=== PATIENT | female | born 1935 | race Hispanic/Latino ===

== ENCOUNTER → 2017-06-24 | Outpatient (CLI) | payer MEDICARE ==
[~2017-06-24] MED LIST: LIDOCAINE/PRILOCAINE CREAM 5GM TUBE TP ONE
[2017-06-24 13:45] VITALS: BP 139/71
== END | disposition home or self-care (01) ==
LOC: WHH 13:00
PROVIDERS: ATTEND Family Medicine
DX: S81.802D Unspecified open wound, left lower leg, subsequent encounter (principal); E11.9 Type 2 diabetes mellitus without complications; I10 Essential (primary) hypertension; J44.9 Chronic obstructive pulmonary disease, unspecified; M19.90 Unspecified osteoarthritis, unspecified site; E78.5 Hyperlipidemia, unspecified; M81.0 Age-related osteoporosis without current pathological fracture; G40.909 Epilepsy, unspecified, not intractable, without status epilepticus; I25.10 Atherosclerotic heart disease of native coronary artery without angina pectoris; X58.XXXD Exposure to other specified factors, subsequent encounter
CPT/HCPCS: 11042; A4450; A6213; A6248; G0463; J3490

== ENCOUNTER → 2017-06-30 | Outpatient (CLI) | payer MEDICARE | END | disposition home or self-care (01) | LOC: WHH 08:00 | PROVIDERS: ATTEND Family Medicine | DX: S81.802D Unspecified open wound, left lower leg, subsequent encounter (principal); E11.9 Type 2 diabetes mellitus without complications; I10 Essential (primary) hypertension; J44.9 Chronic obstructive pulmonary disease, unspecified; M19.90 Unspecified osteoarthritis, unspecified site; E78.5 Hyperlipidemia, unspecified; M81.0 Age-related osteoporosis without current pathological fracture; G40.909 Epilepsy, unspecified, not intractable, without status epilepticus; I25.10 Atherosclerotic heart disease of native coronary artery without angina pectoris; X58.XXXD Exposure to other specified factors, subsequent encounter | CPT/HCPCS: 93922 ==

== ENCOUNTER → 2017-07-01 | Outpatient (CLI) | payer MEDICARE ==
[2017-07-01 13:33] VITALS: BP 183/81
== END | disposition home or self-care (01) ==
LOC: WHH 13:00
PROVIDERS: ATTEND Family Medicine
DX: S81.802D Unspecified open wound, left lower leg, subsequent encounter (principal); E11.9 Type 2 diabetes mellitus without complications; I10 Essential (primary) hypertension; J44.9 Chronic obstructive pulmonary disease, unspecified; M19.90 Unspecified osteoarthritis, unspecified site; E78.5 Hyperlipidemia, unspecified; M81.0 Age-related osteoporosis without current pathological fracture; G40.909 Epilepsy, unspecified, not intractable, without status epilepticus; I25.10 Atherosclerotic heart disease of native coronary artery without angina pectoris; X58.XXXD Exposure to other specified factors, subsequent encounter
CPT/HCPCS: A6213; A6452; G0463; J3490

== ENCOUNTER → 2017-07-08 | Outpatient (CLI) | payer MEDICARE ==
[2017-07-08 13:43] VITALS: BP 168/62
== END | disposition home or self-care (01) ==
LOC: WHH 13:00
PROVIDERS: ATTEND Family Medicine
DX: S81.802D Unspecified open wound, left lower leg, subsequent encounter (principal); E11.9 Type 2 diabetes mellitus without complications; I10 Essential (primary) hypertension; J44.9 Chronic obstructive pulmonary disease, unspecified; M19.90 Unspecified osteoarthritis, unspecified site; E78.5 Hyperlipidemia, unspecified; M81.0 Age-related osteoporosis without current pathological fracture; G40.909 Epilepsy, unspecified, not intractable, without status epilepticus; I25.10 Atherosclerotic heart disease of native coronary artery without angina pectoris; X58.XXXD Exposure to other specified factors, subsequent encounter
CPT/HCPCS: G0463; J3490

== ENCOUNTER → 2017-07-15 | Outpatient (CLI) | payer MEDICARE ==
[2017-07-15 09:33] VITALS: BP 173/64
== END | disposition home or self-care (01) ==
LOC: WHH 08:00
PROVIDERS: ATTEND Family Medicine
DX: S81.802D Unspecified open wound, left lower leg, subsequent encounter (principal); E11.9 Type 2 diabetes mellitus without complications; I10 Essential (primary) hypertension; J44.9 Chronic obstructive pulmonary disease, unspecified; M19.90 Unspecified osteoarthritis, unspecified site; E78.5 Hyperlipidemia, unspecified; M81.0 Age-related osteoporosis without current pathological fracture; G40.909 Epilepsy, unspecified, not intractable, without status epilepticus; I25.10 Atherosclerotic heart disease of native coronary artery without angina pectoris; X58.XXXD Exposure to other specified factors, subsequent encounter
CPT/HCPCS: A6213; G0463; J3490

== ENCOUNTER 2017-07-21 18:53 | Emergency (ER) | payer MEDICARE ==
[2017-07-21] MEDS ORDERED: LIDOCAINE HCL 1% 20 ML VIAL ONE ×2 (19:17→19:19)
[2017-07-21] MEDS ORDERED: TETANUS/DIPHTHERIA TOXOID [ADULT] 0.5 ML VIAL IM ONE (21:22)
== END 2017-07-21 22:11 | disposition home or self-care (01) ==
LOC: EDH 18:53
DX: S81.011A Laceration without foreign body, right knee, initial encounter (principal); W18.39XA Other fall on same level, initial encounter; Z79.899 Other long term (current) drug therapy; Z87.891 Personal history of nicotine dependence; Y93.01 Activity, walking, marching and hiking; Y92.89 Other specified places as the place of occurrence of the external cause; Y99.8 Other external cause status
CPT/HCPCS: 12035; 73562; 90471; 90714

== ENCOUNTER → 2017-08-02 | Outpatient (CLI) | payer MEDICARE ==
[2017-08-02 17:37] VITALS: BP 140/72
== END | disposition home or self-care (01) ==
LOC: WHH 15:00
PROVIDERS: ATTEND Family Medicine
DX: S81.802D Unspecified open wound, left lower leg, subsequent encounter (principal); S81.001D Unspecified open wound, right knee, subsequent encounter; E11.9 Type 2 diabetes mellitus without complications; I10 Essential (primary) hypertension; J44.9 Chronic obstructive pulmonary disease, unspecified; M19.90 Unspecified osteoarthritis, unspecified site; R53.81 Other malaise; E78.5 Hyperlipidemia, unspecified; M81.0 Age-related osteoporosis without current pathological fracture; G40.909 Epilepsy, unspecified, not intractable, without status epilepticus; I25.10 Atherosclerotic heart disease of native coronary artery without angina pectoris; W19.XXXD Unspecified fall, subsequent encounter
CPT/HCPCS: A6209; G0463; J3490

== ENCOUNTER → 2017-08-05 | Outpatient (CLI) | payer MEDICARE ==
[~2017-08-05] MED LIST changes: +HONEY 1 APPL/ML TUBE TP ONE; -LIDOCAINE/PRILOCAINE CREAM 5GM TUBE TP ONE
[2017-08-05 16:12] VITALS: BP 161/67
== END | disposition home or self-care (01) ==
LOC: WHH 13:45
PROVIDERS: ATTEND Family Medicine
DX: S81.802D Unspecified open wound, left lower leg, subsequent encounter (principal); S81.001D Unspecified open wound, right knee, subsequent encounter; E11.9 Type 2 diabetes mellitus without complications; I10 Essential (primary) hypertension; J44.9 Chronic obstructive pulmonary disease, unspecified; M19.90 Unspecified osteoarthritis, unspecified site; I89.0 Lymphedema, not elsewhere classified; E78.5 Hyperlipidemia, unspecified; M81.0 Age-related osteoporosis without current pathological fracture; G40.909 Epilepsy, unspecified, not intractable, without status epilepticus; I25.10 Atherosclerotic heart disease of native coronary artery without angina pectoris; W19.XXXD Unspecified fall, subsequent encounter
CPT/HCPCS: 11042; 11045; 87070; 87077; 87186; A4450

== ENCOUNTER → 2017-08-12 | Outpatient (CLI) | payer MEDICARE ==
[~2017-08-12] MED LIST changes: -HONEY 1 APPL/ML TUBE TP ONE; +LIDOCAINE/PRILOCAINE CREAM 5GM TUBE TP ONE
[2017-08-12 13:28] VITALS: BP 139/63
== END | disposition home or self-care (01) ==
LOC: WHH 12:55
PROVIDERS: ATTEND Family Medicine
DX: S81.802D Unspecified open wound, left lower leg, subsequent encounter (principal); M81.0 Age-related osteoporosis without current pathological fracture; I25.10 Atherosclerotic heart disease of native coronary artery without angina pectoris; J44.9 Chronic obstructive pulmonary disease, unspecified; I10 Essential (primary) hypertension; E78.5 Hyperlipidemia, unspecified; I89.0 Lymphedema, not elsewhere classified; G40.909 Epilepsy, unspecified, not intractable, without status epilepticus; E11.9 Type 2 diabetes mellitus without complications; M19.90 Unspecified osteoarthritis, unspecified site; X58.XXXD Exposure to other specified factors, subsequent encounter
CPT/HCPCS: 11042; 11045; J3490

== ENCOUNTER → 2017-08-19 | Outpatient (CLI) | payer MEDICARE ==
[2017-08-19 13:53] VITALS: BP 165/70
== END | disposition home or self-care (01) ==
LOC: WHH 13:00
PROVIDERS: ATTEND Family Medicine
DX: S81.801D Unspecified open wound, right lower leg, subsequent encounter (principal); S81.802D Unspecified open wound, left lower leg, subsequent encounter; I10 Essential (primary) hypertension; E11.9 Type 2 diabetes mellitus without complications; J44.9 Chronic obstructive pulmonary disease, unspecified; M19.90 Unspecified osteoarthritis, unspecified site; R53.81 Other malaise; E78.5 Hyperlipidemia, unspecified; M81.0 Age-related osteoporosis without current pathological fracture; I89.0 Lymphedema, not elsewhere classified; Z87.891 Personal history of nicotine dependence; W19.XXXD Unspecified fall, subsequent encounter
CPT/HCPCS: 11042; 11045; J3490

== ENCOUNTER → 2017-08-26 | Outpatient (CLI) | payer MEDICARE ==
[2017-08-26 13:56] VITALS: BP 134/56
== END | disposition home or self-care (01) ==
LOC: WHH 13:00
PROVIDERS: ATTEND Family Medicine
DX: T81.89XD Other complications of procedures, not elsewhere classified, subsequent encounter (principal); E11.9 Type 2 diabetes mellitus without complications; I10 Essential (primary) hypertension; J44.9 Chronic obstructive pulmonary disease, unspecified; M19.90 Unspecified osteoarthritis, unspecified site; R53.81 Other malaise; M81.0 Age-related osteoporosis without current pathological fracture; E78.5 Hyperlipidemia, unspecified; I89.0 Lymphedema, not elsewhere classified; I25.10 Atherosclerotic heart disease of native coronary artery without angina pectoris; Z87.891 Personal history of nicotine dependence; Y83.8 Other surgical procedures as the cause of abnormal reaction of the patient, or of later complication, without mention of misadventure at the time of the procedure
CPT/HCPCS: 11042

== ENCOUNTER → 2017-09-02 | Outpatient (CLI) | payer MEDICARE ==
[2017-09-02 14:08] VITALS: BP 160/56
== END | disposition home or self-care (01) ==
LOC: WHH 13:00
PROVIDERS: ATTEND Family Medicine
DX: S81.001D Unspecified open wound, right knee, subsequent encounter (principal); E11.9 Type 2 diabetes mellitus without complications; I10 Essential (primary) hypertension; J44.9 Chronic obstructive pulmonary disease, unspecified; M19.90 Unspecified osteoarthritis, unspecified site; R53.81 Other malaise; M81.0 Age-related osteoporosis without current pathological fracture; E78.5 Hyperlipidemia, unspecified; I89.0 Lymphedema, not elsewhere classified; I25.10 Atherosclerotic heart disease of native coronary artery without angina pectoris; Z87.891 Personal history of nicotine dependence; X58.XXXD Exposure to other specified factors, subsequent encounter
CPT/HCPCS: 11042; J3490

== ENCOUNTER → 2017-09-09 | Outpatient (CLI) | payer MEDICARE ==
[2017-09-09 13:33] VITALS: BP 149/69
== END | disposition home or self-care (01) ==
LOC: WHH 13:00
PROVIDERS: ATTEND Family Medicine
DX: T81.89XD Other complications of procedures, not elsewhere classified, subsequent encounter (principal); J44.9 Chronic obstructive pulmonary disease, unspecified; M19.90 Unspecified osteoarthritis, unspecified site; E11.9 Type 2 diabetes mellitus without complications; R53.81 Other malaise; M81.0 Age-related osteoporosis without current pathological fracture; E78.5 Hyperlipidemia, unspecified; I25.10 Atherosclerotic heart disease of native coronary artery without angina pectoris; I10 Essential (primary) hypertension; I89.0 Lymphedema, not elsewhere classified; Z87.891 Personal history of nicotine dependence; Y83.8 Other surgical procedures as the cause of abnormal reaction of the patient, or of later complication, without mention of misadventure at the time of the procedure
CPT/HCPCS: 11042; J3490

== ENCOUNTER → 2017-09-16 | Outpatient (CLI) | payer MEDICARE ==
[2017-09-16 14:03] VITALS: BP 164/74
== END | disposition home or self-care (01) ==
LOC: WHH 13:00
PROVIDERS: ATTEND Family Medicine
DX: T81.89XD Other complications of procedures, not elsewhere classified, subsequent encounter (principal); M19.90 Unspecified osteoarthritis, unspecified site; R53.81 Other malaise; M81.0 Age-related osteoporosis without current pathological fracture; I87.2 Venous insufficiency (chronic) (peripheral); I89.0 Lymphedema, not elsewhere classified; E78.5 Hyperlipidemia, unspecified; I10 Essential (primary) hypertension; J44.9 Chronic obstructive pulmonary disease, unspecified; I25.10 Atherosclerotic heart disease of native coronary artery without angina pectoris; E11.9 Type 2 diabetes mellitus without complications; Z87.891 Personal history of nicotine dependence; Y83.8 Other surgical procedures as the cause of abnormal reaction of the patient, or of later complication, without mention of misadventure at the time of the procedure
CPT/HCPCS: 11042; A4450; J3490

== ENCOUNTER 2017-09-23 13:00 | Outpatient (CLI) | payer MEDICARE ==
[2017-09-23 14:46] VITALS: BP 181/64
== END 2017-09-23 17:00 | disposition home or self-care (01) ==
LOC: WHH 13:00
PROVIDERS: ATTEND Family Medicine
DX: T81.89XD Other complications of procedures, not elsewhere classified, subsequent encounter (principal); M19.90 Unspecified osteoarthritis, unspecified site; R53.81 Other malaise; M81.0 Age-related osteoporosis without current pathological fracture; E78.5 Hyperlipidemia, unspecified; I87.2 Venous insufficiency (chronic) (peripheral); J44.9 Chronic obstructive pulmonary disease, unspecified; I10 Essential (primary) hypertension; I89.0 Lymphedema, not elsewhere classified; G40.909 Epilepsy, unspecified, not intractable, without status epilepticus; Z87.891 Personal history of nicotine dependence; Y83.8 Other surgical procedures as the cause of abnormal reaction of the patient, or of later complication, without mention of misadventure at the time of the procedure
CPT/HCPCS: G0463; J3490

== ENCOUNTER → 2017-10-21 | Outpatient (CLI) | payer MEDICARE ==
[2017-10-21 16:27] VITALS: BP 182/75
== END | disposition home or self-care (01) ==
LOC: WHH 13:00
PROVIDERS: ATTEND Family Medicine
DX: I83.018 Varicose veins of right lower extremity with ulcer other part of lower leg (principal); L97.811 Non-pressure chronic ulcer of other part of right lower leg limited to breakdown of skin; M19.90 Unspecified osteoarthritis, unspecified site; R53.81 Other malaise; M81.0 Age-related osteoporosis without current pathological fracture; E78.5 Hyperlipidemia, unspecified; I87.2 Venous insufficiency (chronic) (peripheral); J44.9 Chronic obstructive pulmonary disease, unspecified; I10 Essential (primary) hypertension; I89.0 Lymphedema, not elsewhere classified; I73.9 Peripheral vascular disease, unspecified; G40.909 Epilepsy, unspecified, not intractable, without status epilepticus; Z87.891 Personal history of nicotine dependence; Z90.710 Acquired absence of both cervix and uterus
CPT/HCPCS: 11042; A4450; A6196; A6248; J3490

== ENCOUNTER → 2019-03-20 | Outpatient (CLI) | payer MEDICARE | END | disposition home or self-care (01) | LOC: RAH 07:50 | PROVIDERS: ATTEND Internal Medicine | DX: R10.11 Right upper quadrant pain (principal) | CPT/HCPCS: 76700 ==

== ENCOUNTER → 2019-06-05 | Outpatient (CLI) | payer MEDICARE | END | disposition home or self-care (01) | LOC: OIH 10:38 | PROVIDERS: ATTEND Internal Medicine | DX: M47.814 Spondylosis without myelopathy or radiculopathy, thoracic region (principal); J44.1 Chronic obstructive pulmonary disease with (acute) exacerbation; I70.0 Atherosclerosis of aorta | CPT/HCPCS: 71046 ==

== ENCOUNTER → 2019-12-04 | Outpatient (CLI) | payer MEDICARE | END | disposition home or self-care (01) | LOC: OIH 11:56 | PROVIDERS: ATTEND Internal Medicine | DX: S52.602A Unspecified fracture of lower end of left ulna, initial encounter for closed fracture (principal); S62.102A Fracture of unspecified carpal bone, left wrist, initial encounter for closed fracture; M19.032 Primary osteoarthritis, left wrist; M47.815 Spondylosis without myelopathy or radiculopathy, thoracolumbar region; X58.XXXA Exposure to other specified factors, initial encounter; Y93.89 Activity, other specified; Y92.89 Other specified places as the place of occurrence of the external cause; Y99.8 Other external cause status | CPT/HCPCS: 73100; 74018 ==

== ENCOUNTER 2019-12-07 11:57 | Inpatient (IN) | payer MEDICARE ==
[~2019-12-07] VITALS: Ht 154.9 cm; Wt 74.8 kg
--- NOTE | 2019-12-07 11:48 | NUR ---
TEXT TO DR. NANCY BRUNER TESTING ON NEW ADMIT ??WITH RULE OUT DX OF P/E?? ASKED DR. Washburn TO SENT ZOHREH SCREENIGN IF DONE TO FAX ON 3B. PENDING RESPONSE Addendum: 12/07/19 at 1854 by HEATHER MAI RN CM Amended: Links added.
[2019-12-07] MEDS ORDERED: ONDANSETRON HCL 4 MG/2 ML VIAL IVP PRN (12:45)
[2019-12-07] MEDS ORDERED: PHARMACY COMMUNICATION MISC SCH (12:45)
[2019-12-07] MEDS ORDERED: 1/2 NORMAL SALINE 1,000 ML IV SCH (12:45)
[2019-12-07 13:11] LABS: BASOPHILS % (AUTO) 0.1 % (0.0-5.0); EOSINOPHILS % (AUTO) 0.3 % (0.0-8.0); HEMATOCRIT 28.4 % (36-48); LYMPHOCYTES % (AUTO) 3.4 % (21.0-51.0); MEAN CORPUSCULAR HEMOGLOBIN 26.7 pg (27.0-33.0); MEAN CORPUSCULAR HGB CONC 31.3 g/dL (32.0-36.0); MEAN CORPUSCULAR VOLUME 85.3 fL (79-99); MONOCYTES % (AUTO) 4.1 % (3.0-13.0); NEUTROPHILS % (AUTO) 91.1 % (40.0-77.0); PLATELET COUNT (AUTO) 223 K/uL (130-400); RED BLOOD CELL COUNT(AUTO) 3.33 MIL/uL (4.00-5.50); RED CELL DISTRIBUTION WIDTH 16.3 % (11.0-15.5); WHITE BLOOD COUNT (AUTO) 9.5 K/uL (4.8-10.8)
[2019-12-07 13:30] VITALS: BP 114/53
[2019-12-07 13:37] LABS: CREATINE KINASE, TOTAL 37 U/L (21-232); MYOGLOBIN 72 ng/mL (10-92); TROPONIN I < 0.04 ng/mL (0.00-0.06)
[2019-12-07 13:44] LABS: ALBUMIN 1.6 g/dL (3.5-5.0); BILIRUBIN,TOTAL 0.3 mg/dL (0.2-1.0); CREATININE 1.6 mg/dL (0.5-1.5); TOTAL PROTEIN, SERUM 5.4 g/dL (6.0-8.3)
[2019-12-07] MEDS ORDERED: IOHEXOL-350 75 ML VIAL IV ONE (14:59)
[2019-12-07 16:14] VITALS: BP 140/62
[2019-12-07] MEDS: CEFTRIAXONE SODIUM 1 GM IVP SCH (16:56)
[2019-12-07] MEDS: ENOXAPARIN SODIUM 80 MG/0.8 ML SQ SCH ×2 (16:58→20:00)
[2019-12-07] MEDS ORDERED: DEXTROSE 50%-WATER 50 ML DISP.SYRIN IV ONE ×3 (17:37→23:57)
[2019-12-07 18:54] LABS: CREATINE KINASE, TOTAL 35 U/L (21-232); MYOGLOBIN 94 ng/mL (10-92); TROPONIN I < 0.04 ng/mL (0.00-0.06)
[2019-12-07 19:40] VITALS: BP 117/76
[2019-12-07] MEDS ORDERED: TRAM50TA4 PO (20:31)
[2019-12-07] MEDS ORDERED: FURO-152 PO (20:31)
[2019-12-07] MEDS ORDERED: CILO100T PO (20:31)
[2019-12-07] MEDS ORDERED: ATOR10TA PO (20:31)
[2019-12-07] MEDS ORDERED: LOSA100T58 PO (20:31)
[2019-12-07] MEDS ORDERED: ALBU8.5H8 IH (20:31)
[2019-12-07] MEDS ORDERED: INSU100V12 SQ (20:31)
[2019-12-07] MEDS ORDERED: INSNOV SQ (20:31)
[2019-12-07] MEDS ORDERED: FLUT1BLS3 IH (20:31)
[2019-12-07] MEDS ORDERED: SITA100T12 PO (20:31)
[2019-12-07] MEDS ORDERED: OMEP40CA13 PO (20:31)
[2019-12-07] MEDS ORDERED: ENOXAPARIN SODIUM 80 MG/0.8 ML SQ SCH (21:00)
[2019-12-08] VITALS (7 sets, daily range): BP systolic 115–163; BP diastolic 48–72
[2019-12-08 01:05] LABS: CREATINE KINASE, TOTAL 28 U/L (21-232); MYOGLOBIN 72 ng/mL (10-92); TROPONIN I < 0.04 ng/mL (0.00-0.06)
[2019-12-08] MEDS: DEXTROSE 5%-WATER 1,000 ML IV SCH ×2 (02:41→15:20)
[2019-12-08] MEDS ORDERED: DEXTROSE 50%-WATER 50 ML DISP.SYRIN IV ONE (05:22)
--- NOTE | 2019-12-08 05:34 | NUR ---
Hypoglycemia Patient was transferred from [facility] from the nurse Davy. I was told in report that the patient was given 2 amps of D50 before she was transferred to al. Once she arrived to her room 431 @21:00 her BS was 128 within an hour she called and said that she feels like her BS was dropping again. It was checked and the results were in the 30s. Another amp of D50 was given & D5@70ml/hr was started & the MD was called and made aware. He agreed with the interventions that were already implemented. An hour later, her BS was rechecked and it was 183. However, this morning @530 with the D5 going at 75ml/hr her BS was 55 & another amp of D50 was given and the MD was paged again (Dr. Meek).
[2019-12-08 06:02] LABS: BASOPHILS % (AUTO) 0.2 % (0.0-5.0); EOSINOPHILS % (AUTO) 1.9 % (0.0-8.0); LYMPHOCYTES % (AUTO) 7.5 % (21.0-51.0); MEAN CORPUSCULAR HGB CONC 29.6 g/dL (32.0-36.0); MEAN CORPUSCULAR VOLUME 91.2 fL (79-99); MONOCYTES % (AUTO) 5.8 % (3.0-13.0); NEUTROPHILS % (AUTO) 83.7 % (40.0-77.0); PLATELET COUNT (AUTO) 192 K/uL (130-400); RED BLOOD CELL COUNT(AUTO) 2.74 MIL/uL (4.00-5.50); WHITE BLOOD COUNT (AUTO) 5.7 K/uL (4.8-10.8)
[2019-12-08] MEDS ORDERED: METHYLPREDNISOLONE SOD SUCC 125MG/2ML VIAL ONE (06:42)
--- NOTE | 2019-12-08 06:44 | NUR ---
Spoke with Dr. Meek Just spoke with MD per poor glucose control. I was told to give her a 1x dose of solumedrol 125. No other orders per MD.
[2019-12-08 08:01] LABS: CREATININE 1.3 mg/dL (0.5-1.5); MAGNESIUM 2.8 mg/dL (1.80-2.40); PHOSPHORUS 4.1 mg/dL (2.5-4.9); POTASSIUM 4.2 mmol/L (3.5-5.1)
[2019-12-08] MEDS: ENOXAPARIN SODIUM 80 MG/0.8 ML SQ SCH ×2 (09:11→19:42)
[2019-12-08] MEDS: CEFTRIAXONE SODIUM 1 GM IVP SCH (12:37)
--- NOTE | 2019-12-08 17:32 | NUR ---
INITIAL SW spoke with patient's daughter, Cari Mccray. Patient lives with spouse, one daughter and 2 sons. She has no home health but does have PHC with [facility] X 20 hours. Daughter, Cari, is provider. DME: glucometer(uses insulin), showerchair, O2 concentrator/portable. O2 arranged through [facility]. Patient needs help with ADL's and does not drive. Family assist as needed. PCP is Dr. Meek. Pharmacy is [facility] located on [address]. No safety issues voiced by daughter regarding patient returning home. DCP is home. Addendum: 12/08/19 at 1735 by NASIMA MORE Amended: Links added.
[2019-12-09] MEDS: DEXTROSE 5%-WATER 1,000 ML IV SCH ×2 (02:52→18:00)
[2019-12-09 03:18] VITALS: BP 92/49
[2019-12-09 04:05] VITALS: BP 155/66
[2019-12-09 09:11] VITALS: BP 156/75
[2019-12-09] MEDS: ENOXAPARIN SODIUM 80 MG/0.8 ML SQ SCH ×2 (09:13→20:20)
[2019-12-09 11:49] VITALS: BP 116/47
[2019-12-09 12:07] LABS: MEAN CORPUSCULAR HEMOGLOBIN 26.6 pg (27.0-33.0); MEAN CORPUSCULAR HGB CONC 31.3 g/dL (32.0-36.0); MEAN CORPUSCULAR VOLUME 84.7 fL (79-99); RED BLOOD CELL COUNT(AUTO) 3.54 MIL/uL (4.00-5.50); RED CELL DISTRIBUTION WIDTH 16.3 % (11.0-15.5); WHITE BLOOD COUNT (AUTO) 11.9 K/uL (4.8-10.8)
[2019-12-09] MEDS: CEFTRIAXONE SODIUM 1 GM IVP SCH (13:00)
[2019-12-09 16:18] VITALS: BP 130/60
[2019-12-09 20:25] VITALS: BP 153/62
[2019-12-10] VITALS (7 sets, daily range): BP systolic 115–160; BP diastolic 51–72
[2019-12-10 04:12] LABS: ABG BASE EXCESS 3.5 mmol/L (-2.0-3.0); ABG HCO3 27.6 mmol/L (21.0-28.0); ABG OXYGEN SATURATION 94.9 % (95.0-99.0); ABG PCO2 40 mmHg (32-45)
[2019-12-10 06:06] LABS: BASOPHILS % (AUTO) 0.2 % (0.0-5.0); EOSINOPHILS % (AUTO) 1.4 % (0.0-8.0); HEMATOCRIT 28.5 % (36-48); LYMPHOCYTES % (AUTO) 7.5 % (21.0-51.0); MEAN CORPUSCULAR HEMOGLOBIN 26.4 pg (27.0-33.0); MEAN CORPUSCULAR HGB CONC 31.2 g/dL (32.0-36.0); MEAN CORPUSCULAR VOLUME 84.6 fL (79-99); MONOCYTES % (AUTO) 5.2 % (3.0-13.0); PLATELET COUNT (AUTO) 310 K/uL (130-400); RED BLOOD CELL COUNT(AUTO) 3.37 MIL/uL (4.00-5.50); RED CELL DISTRIBUTION WIDTH 16.5 % (11.0-15.5); WHITE BLOOD COUNT (AUTO) 8.5 K/uL (4.8-10.8)
[2019-12-10 06:17] LABS: ALBUMIN 1.7 g/dL (3.5-5.0); BILIRUBIN,TOTAL 0.3 mg/dL (0.2-1.0); CREATININE 1.2 mg/dL (0.5-1.5); MAGNESIUM 2.5 mg/dL (1.80-2.40); POTASSIUM 4.5 mmol/L (3.5-5.1); TOTAL PROTEIN, SERUM 5.8 g/dL (6.0-8.3)
[2019-12-10] MEDS: DEXTROSE 5%-WATER 1,000 ML IV SCH ×2 (07:20→19:08)
[2019-12-10] MEDS: ENOXAPARIN SODIUM 80 MG/0.8 ML SQ SCH ×2 (08:30→19:45)
[2019-12-10] MEDS: CEFTRIAXONE SODIUM 1 GM IVP SCH (12:10)
[2019-12-10] MEDS ORDERED: IOHEXOL-350 75 ML VIAL IV ONE (12:16)
[2019-12-10] MEDS ORDERED: DEXAMETHASONE 10MG/ML 1ML VIAL 0 MG in SODIUM CHLORIDE 0.9% 50 ML IV SCH (14:30)
[2019-12-10] MEDS ORDERED: PHARMACY COMMUNICATION MISC SCH (14:45)
[2019-12-11 04:13] LABS: ABG BASE EXCESS 2.6 mmol/L (-2.0-3.0); ABG HCO3 27.2 mmol/L (21.0-28.0); ABG OXYGEN SATURATION 95.5 % (95.0-99.0); ABG PCO2 42 mmHg (32-45)
[2019-12-11 04:45] VITALS: BP 138/49
[2019-12-11 05:31] LABS: BASOPHILS % (AUTO) 0.1 % (0.0-5.0); EOSINOPHILS % (AUTO) 2.1 % (0.0-8.0); HEMATOCRIT 25.5 % (36-48); LYMPHOCYTES % (AUTO) 9.2 % (21.0-51.0); MEAN CORPUSCULAR HEMOGLOBIN 26.4 pg (27.0-33.0); MEAN CORPUSCULAR VOLUME 85.3 fL (79-99); MONOCYTES % (AUTO) 5.3 % (3.0-13.0); PLATELET COUNT (AUTO) 296 K/uL (130-400); RED BLOOD CELL COUNT(AUTO) 2.99 MIL/uL (4.00-5.50); RED CELL DISTRIBUTION WIDTH 16.4 % (11.0-15.5)
[2019-12-11 05:56] LABS: MAGNESIUM 2.7 mg/dL (1.80-2.40); PHOSPHORUS 3.1 mg/dL (2.5-4.9)
[2019-12-11 08:30] VITALS: BP_SYST 137; BP_SYST 158; BP_DIAS 71; BP_DIAS 84
[2019-12-11] MEDS: DEXAMETHASONE SOD PHOSPHATE 4 MG/ML 1ML VIAL IVP SCH (09:18)
[2019-12-11] MEDS: ENOXAPARIN SODIUM 80 MG/0.8 ML SQ SCH ×2 (09:19→19:55)
[2019-12-11] MEDS: DEXTROSE 5%-WATER 1,000 ML IV SCH ×2 (10:00→20:02)
[2019-12-11 12:14] VITALS: BP 135/67
[2019-12-11] MEDS: CEFTRIAXONE SODIUM 1 GM IVP SCH (12:20)
--- NOTE | 2019-12-11 14:17 | NUR ---
RT lower quadrant swelling Ty LONE LEAD LINEMAN and primary RN assessed pt abdomen, Rlq, swelling noted on lovenox injection area. pt report mild pain in the area. PEr Weathercaster pt lovenox echo be adjusted, charge urse notified, picture taken. will cont to monitor pt site . bleeding precautions maintained. safety maintained
--- NOTE | 2019-12-11 15:25 | NUR ---
1263 received telephone consent for IM Letter, i faxed IM Letter to [phone].
[2019-12-11 16:30] VITALS: BP 116/49
[2019-12-11] MEDS: INSULIN HUMULIN R 100 UNIT/ML 3ML SQ SCH ×2 (17:33→20:02)
[2019-12-11 19:50] VITALS: BP 91/43
[2019-12-11 23:15] VITALS: BP 121/76
[2019-12-12] VITALS (35 sets, daily range): BP systolic 58–131; BP diastolic 27–79
[2019-12-12] MEDS ORDERED: FUROSEMIDE 20 MG TABLET PO PRN (01:15)
[2019-12-12] MEDS ORDERED: ALBUTEROL INHALER 90MCG/INH IH PRN (01:15)
[2019-12-12] MEDS: INSULIN HUMULIN R 100 UNIT/ML 3ML SQ SCH ×3 (05:40→16:06)
[2019-12-12 06:49] LABS: BASOPHILS % (AUTO) 0.1 % (0.0-5.0); EOSINOPHILS % (AUTO) 0.7 % (0.0-8.0); LYMPHOCYTES % (AUTO) 10.3 % (21.0-51.0); MEAN CORPUSCULAR HGB CONC 31.9 g/dL (32.0-36.0); MEAN CORPUSCULAR VOLUME 84.6 fL (79-99); MONOCYTES % (AUTO) 6.6 % (3.0-13.0); NEUTROPHILS % (AUTO) 80.1 % (40.0-77.0); PLATELET COUNT (AUTO) 354 K/uL (130-400); RED BLOOD CELL COUNT(AUTO) 2.41 MIL/uL (4.00-5.50); RED CELL DISTRIBUTION WIDTH 15.9 % (11.0-15.5); WHITE BLOOD COUNT (AUTO) 11.8 K/uL (4.8-10.8)
[2019-12-12 07:06] LABS: HEMATOCRIT 20.4 % (36-48)
[2019-12-12 07:13] LABS: CREATININE 1.7 mg/dL (0.5-1.5)
[2019-12-12] MEDS ORDERED: INSULIN GLARGINE 100 UNITS/ML 10 ML VIAL SQ SCH (07:30)
[2019-12-12 08:39] LABS: BASOPHILS % (AUTO) 0.1 % (0.0-5.0); EOSINOPHILS % (AUTO) 0.4 % (0.0-8.0); HEMATOCRIT 21.1 % (36-48); LYMPHOCYTES % (AUTO) 11.7 % (21.0-51.0); MEAN CORPUSCULAR HEMOGLOBIN 26.9 pg (27.0-33.0); MEAN CORPUSCULAR HGB CONC 30.8 g/dL (32.0-36.0); MEAN CORPUSCULAR VOLUME 87.2 fL (79-99); MONOCYTES % (AUTO) 6.2 % (3.0-13.0); NEUTROPHILS % (AUTO) 79.1 % (40.0-77.0); PLATELET COUNT (AUTO) 396 K/uL (130-400); RED BLOOD CELL COUNT(AUTO) 2.42 MIL/uL (4.00-5.50); RED CELL DISTRIBUTION WIDTH 16.2 % (11.0-15.5); WHITE BLOOD COUNT (AUTO) 16.2 K/uL (4.8-10.8)
[2019-12-12] MEDS ORDERED: CILOSTAZOL 100 MG TAB PO SCH (09:00)
[2019-12-12] MEDS ORDERED: LOSARTAN 100 MG TABLET PO SCH (09:00)
[2019-12-12] MEDS ORDERED: PANTOPRAZOLE SODIUM 40 MG TABLET.DR PO SCH (09:00)
[2019-12-12] MEDS ORDERED: ENOXAPARIN SODIUM 80 MG/0.8 ML SQ SCH (09:00)
[2019-12-12] MEDS: DEXAMETHASONE SOD PHOSPHATE 4 MG/ML 1ML VIAL IVP SCH (09:23)
--- NOTE | 2019-12-12 10:00 | NUR ---
Change of Status 0738:Called patient Attending notified of critical h&h orders given to repeat CBC and transfuse 1 unit of PRBC if Hemoglobin is <7. patient in bed resting at NAD distress noted. 0940: patient was sitting on the chair watching TV pending Blood Transfusion. library circulation technician went to the room to get her ready for transport for CT. Per the Tech patient became unresponsive, her eyes were open but she was not responding,Tech laid her down on the bed and notified the nurse.On arrival patient was laying in bed, eyes open, pupils reactive but sluggish,Vitals taken HR 120,s BP 78/49. Code called for change in mental status. Patient Intubated by ER Physician on duty and transferred to ICU. 1147:Patient personal belonging and wheelchair taken to ICU by Charge Nurse Alessia.
[2019-12-12] MEDS ORDERED: DOPAMINE 800MG/D5 250ML 250 ML IV ONE (10:09)
--- NOTE | 2019-12-12 11:00 | NUR ---
RECEIVING NOTE 1108 RECEIVED PT INTUBATED AND SEDATED ON PROPOFOL, DOPAMINE, AND PRBC INFUSING. PT OPENS EYES AND FOLLOWS COMMANDS AT TIMES. PT REMAINS HYPOTENSIVE 81/34 HR 104, SATURATING 70-79% ON FIO2 100%. 1130 LEVOPHED STARTED. FACE MAN AT BEDSIDE ASSISTING AND NOTIFIED BENCHMARK COMBATANT SWIMMER AND MD. 1212 COMBATANT SWIMMER CONSULTED PT AT BEDSIDE. STAT ABG, CARDIAC ENZYMES AND H&H ORDERED. VENT ADJUSTMENTS MADE. NO ORDERS FOR PRONING AT THIS TIME. 1315 PT PRONED AT THIS TIME. SATS REMAINED IN LOW 70S. NO MD AT BEDSIDE AT THIS TIME. 1345 MIGUEL BLANTON AND COMBATANT SWIMMER ROUNDED AT BSD. PT ALREADY PRONED SATTING 94%. REQUIRING MORE VASOPRESSOR SUPPORT, VASO AND BISI ORDERED.
[2019-12-12] MEDS ORDERED: NOREPINEPHRINE 4MG/NS 250ML 250 ML IV ONE (11:34)
[2019-12-12] MEDS ORDERED: FUROSEMIDE 10 MG/ML 4ML VIAL IV SCH (11:56)
[2019-12-12] MEDS ORDERED: ***HM***(Fluticasone/Umeclidin/Vilanter (Trelegy Ellipta 100-62.5- IH SCH (11:57)
[2019-12-12 12:03] LABS: ABG BASE EXCESS -7.8 mmol/L (-2.0-3.0); ABG HCO3 19.6 mmol/L (21.0-28.0); ABG OXYGEN SATURATION 77.4 % (95.0-99.0); ABG PCO2 49 mmHg (32-45)
[2019-12-12 12:29] LABS: HEMATOCRIT 26.9 % (36-48)
[2019-12-12 12:45] LABS: APPEARANCE,URINE Cloudy (CLEAR); BILIRUBIN,URINE Negative (NEGATIVE); COLOR,URINE Yellow (YELLOW); GLUCOSE, URINE (UA) Negative (NEGATIVE); KETONES,URINE Trace mg/dL (NEGATIVE); LEUKOCYTE ESTERASE ,URINE Large (NEGATIVE); NITRATE,URINE Negative (NEGATIVE); OCCULT BLOOD,URINE Negative (NEGATIVE); PH,URINE 6.5 (5.0-8.0); PROTEIN,URINE Trace mg/dL (NEGATIVE); UROBILINOGEN,URINE 0.2 mg/dL (0.2-1.0)
[2019-12-12 12:58] LABS: CREATINE KINASE, TOTAL 48 U/L (21-232); MYOGLOBIN 506 ng/mL (10-92); TROPONIN I < 0.04 ng/mL (0.00-0.06)
[2019-12-12 13:00] LABS: BACTERIA,URINE Few /HPF (None Seen); SQUAMOUS EPITHELIAL CELL,UR Rare /HPF (0-2); YEAST,URINE BUDDING Many /HPF (None Seen)
[2019-12-12] MEDS ORDERED: PANTOPRAZOLE 40 MG/VIAL IVP SCH (13:00)
[2019-12-12] MEDS ORDERED: VASOPRESSIN 40 UNITS in SODIUM CHLORIDE 0.9% 40 ML IV SCH (13:30)
[2019-12-12] MEDS ORDERED: ZOSYN 3.375GM+NS 50ML 50 ML IV SCH (14:00)
[2019-12-12] MEDS ORDERED: PHENYLEPHRINE HCL 100 MG in SODIUM CHLORIDE 0.9% 250 ML IV SCH (14:30)
[2019-12-12] MEDS ORDERED: FENTANYL 2500MCG+NS 250ML 250 ML IV ONE (14:39)
[2019-12-12] MEDS ORDERED: FENTANYL CITRATE PF 0.05 MG/ML 1,000 MCG in SODIUM CHLORIDE 0.9% 100 ML PRN (15:00)
[2019-12-12 15:07] LABS: ABG BASE EXCESS -14.4 mmol/L (-2.0-3.0); ABG HCO3 12.9 mmol/L (21.0-28.0); ABG OXYGEN SATURATION 93.5 % (95.0-99.0); ABG PCO2 35 mmHg (32-45)
[2019-12-12] MEDS ORDERED: FENTANYL 2500MCG+NS 250ML 250 ML IV SCH (15:15)
--- NOTE | 2019-12-12 16:01 | NUR ---
FAMILY UPDATE DAUGHTER DIYA UPDATED ON PT STATUS, ALL QUESTIONS ANSWERED.
[2019-12-12 18:15] LABS: HEMATOCRIT 29.7 % (36-48)
--- NOTE | 2019-12-12 18:32 | NUR ---
MD/TRAVEL ACCOMMODATION INSPECTOR NOTIFICATION KISHAN DIAZ MADE AWARE ABG FOLLOWUP RESULTS. 2 AMPS BICARB IVP ORDERED, AND BICARB DRIP ORDERED. 1838 BICARB GIVEN, UNABLE TO OBTAIN SATS AND BP. PT COOL TO TOUCH, BAIRHUGGER APPLIED. +CAROTID PULSE BY DOPPLER. WILL ENDORSE TO NIGHT RN, ATTEMPT TO OBTAIN DNR.
[2019-12-12] MEDS ORDERED: SODIUM BICARB 50MEQ 50ML VIAL ONE (18:34)
[2019-12-12 18:43] LABS: TROPONIN I 0.06 ng/mL (0.00-0.06)
[2019-12-12] MEDS ORDERED: SODIUM BICARB 8.4% 50ML SYRING 150 MEQ in DEXTROSE 5%-WATER 1,000 ML IV SCH (18:45)
[2019-12-12] MEDS ORDERED: PHARMACY COMMUNICATION MISC SCH (18:45)
[2019-12-12] MEDS ORDERED: AZITHROMYCIN 500MG+NS 250ML 250 ML IV SCH (19:15)
[2019-12-12] MEDS ORDERED: PROPOFOL 1000 MG/100 ML 100 ML IV ONE (19:23)
[2019-12-12] MEDS ORDERED: NOREPINEPHRINE BITARTRATE 8 MG/NS 250ML IV SCH ×2 (19:30)
[2019-12-12] MEDS ORDERED: SODIUM POLYSTYRENE SULFONATE 15 GM/60 ML ML PO SCH (19:45)
[2019-12-12] MEDS ORDERED: SODIUM BICARB 50MEQ 50ML VIAL IV SCH ×2 (20:00)
[2019-12-12] MEDS ORDERED: LORAZEPAM 2 MG/ML 1 ML VIAL IVP PRN (20:45)
[2019-12-12] MEDS ORDERED: MORPHINE SULFATE 2 MG/ML 1ML SYG IVP PRN (20:45)
[2019-12-12] MEDS ORDERED: TRAMADOL HCL 50 MG TABLET PO SCH (21:00)
[2019-12-12] MEDS ORDERED: ATORVASTATIN CALCIUM 10 MG TABLET PO SCH (21:00)
[2019-12-12] MEDS ORDERED: HYDROCORTISONE SOD SUCCINATE 100 MG/2 ML VIAL IV SCH (22:00)
--- NOTE | 2019-12-13 01:13 | NUR ---
SHIFT SUMMARY 19:55 I'M UNABLE TO OBTAIN A B/P. AFTER SEVERAL ATTEMPTS I MANAGE TO GET A B/P 60'S/30'S. MEDICATIONS INFUSING FOLLOWS: LEVOPHED ( TRIPLE STRENGTH ) 0.5 MG/KG/MIN= 33.75 vASOPRESSIN 0.04 MCG/KG/MN= 2.4 ML/HR BISI 3 MCG/KG/MIN= 33.75 ML/HR PROPOFOL 20 MCG/KG/MIN= 9 ML/HR FENTANYL 125 MCG/HR= 12.5 ML/HR [id number] BICARB = 75 ML/HR 19:30 O2 SATS BEGAN TO DROP 90'S TO 60'S, 97.8 VIA TEMPORAL AND WARMING BLANKET ON DR. RUCKER ( PROFESSOR OF THEATER FOR ) & DAUGHTER NOTIFIED OF PT CHANGE IN STATUS 21:20 DAUGHTER DECIDED TO WITHDRAW CARE DAUGHTER STATED THAT SHE WAS APPRECIATIVE OF THE CARE WE HAD GIVEN HER MOTHER
[2019-12-13] MEDS ORDERED: ENOXAPARIN SODIUM 30 MG/0.3 ML SQ SCH (09:00)
== END 2019-12-12 22:12 | disposition expired | DRG 208 ==
LOC: EDH 11:57 → OBSVTOIN 11:58 → EDHIP 11:58 → 3BH 12:24 → 4AH 20:21 → 2CH 12-12 10:50
PROVIDERS: ADMIT Internal Medicine; ATTEND Internal Medicine
PROC: 30233N1 Transfusion of Nonautologous Red Blood Cells into Peripheral Vein, Percutaneous Approach (ICD-10-PCS; principal; 2019-12-12)
PROC: 5A1935Z Respiratory Ventilation, Less than 24 Consecutive Hours (ICD-10-PCS; 2019-12-12)
PROC: 0BH17EZ Insertion of Endotracheal Airway into Trachea, Via Natural or Artificial Opening (ICD-10-PCS; 2019-12-12)
PROC: 5A12012 Performance of Cardiac Output, Single, Manual (ICD-10-PCS; 2019-12-12)
DX: U07.1 COVID-19 (principal); J12.89 Other viral pneumonia; J96.21 Acute and chronic respiratory failure with hypoxia; D62 Acute posthemorrhagic anemia; I50.22 Chronic systolic (congestive) heart failure; I13.0 Hypertensive heart and chronic kidney disease with heart failure and stage 1 through stage 4 chronic kidney disease, or unspecified chronic kidney disease; J44.0 Chronic obstructive pulmonary disease with (acute) lower respiratory infection; J44.1 Chronic obstructive pulmonary disease with (acute) exacerbation; E11.22 Type 2 diabetes mellitus with diabetic chronic kidney disease; N18.3 Chronic kidney disease, stage 3 (moderate); D63.1 Anemia in chronic kidney disease; E11.649 Type 2 diabetes mellitus with hypoglycemia without coma; E11.65 Type 2 diabetes mellitus with hyperglycemia; E78.5 Hyperlipidemia, unspecified; I46.9 Cardiac arrest, cause unspecified; G40.909 Epilepsy, unspecified, not intractable, without status epilepticus; I87.2 Venous insufficiency (chronic) (peripheral); I89.0 Lymphedema, not elsewhere classified; Z87.891 Personal history of nicotine dependence; Y95 Nosocomial condition; I83.90 Asymptomatic varicose veins of unspecified lower extremity
CPT/HCPCS: 31500; 36415; 36430; 36600; 71045; 71275; 73100; 74018; 80048; 80053; 81001; 82435; 82550; 82803; 82947; 82948; 83605; 83735; 83874; 84100; 84132; 84145; 84295; 84484; 85014; 85018; 85025; 85027; 85378; 86850; 86900; 86901; 86923; 87040; 87088; 87426; 92950; 93005; 93970; 94002; C9113; G0378; J0456; J0696; J1100; J1265; J1650; J2370; J2543; J2704; J2930; J3010; J3490; J7050; J7070; P9016; Q9967; U0003